=== PATIENT | female | born 1945 | race Caucasian/White ===

== ENCOUNTER 2018-07-27 12:52 | Observation (INO) ==
[2018-07-27] MEDS ORDERED: 0.9 % Sodium Chloride 1,000 ML IVC ONE (13:25)
[2018-07-27] MEDS ORDERED: Ondansetron 4 MG/2 ML VIAL IVP ONE (13:25)
[2018-07-27] MEDS ORDERED: 0.9 % Sodium Chloride 1,000 ML IVC SCH (13:30)
[2018-07-27] MEDS ORDERED: *HR* HYDROmorphone (PF) 1 MG/ML SYRINGE IVP ONE (13:30)
--- NOTE | 2018-07-27 13:30 | Emergency Department Note ---
Disposition Clinical Impression: Right upper quadrant abdominal pain, Hyponatremia Intractable vomiting Qualifiers: Vomiting type: unspecified Nausea presence: with nausea Qualified Code(s): R11.2 - Nausea with vomiting, unspecified Disposition: Admitted As Inpatient Condition: Fair Referrals: Jasbir Delcid MD [Primary Care Provider] - Forms: ED Satisfaction Letter Abdominal Pain HPI - General Chief Complaint: ED Nausea/Vomiting/Diarrhea Stated Complaint: Vomiting for 3 days/ Dr. yesterday Time Seen by Provider: 07/27/18 13:24 Source: patient, family Mode of arrival: private vehicle Limitations: no limitations Nursing Notes Reviewed: Yes Vital Signs Reviewed: Yes - History of Present Illness HPI Narrative: Patient arrives with history of increased right upper quadrant abdominal pain for 3-4 days. She is seen here by myself in transfer to [facility] with a common bile duct stone with epigastric pain on July 15. She is been relatively well post-ERCP, sphincterotomy and stone removal. She is now having persistent nausea and vomiting and severe pain in the right upper quadrant. Emesis has been without blood. She has not been eating eat or drink much for the 3-4 days and she states she has had decreased bowel movement for 2 days. She has not been having bloody or black stool. She denies chest pain, shortness of breath or palpitations. She denies fevers, chills or urinary troubles. She does have pain with motion or palpation on the abdomen. She saw her family doctor yesterday and was advised to go to liquid diet. With persistent and increasing pain she is come here today for reevaluation. Pt Subjective Complaint: abdominal pain Onset (ago): day(s) Consistency: Worsening Location: RUQ Pain Severity: severe Quality: cannot describe Radiation: none Migration to: no migration Improves with: nothing Worsens with: movement, other (Palpation) Context: history of similar episodes Associated symptoms: Reports: nausea, vomiting, anorexia. Denies: diarrhea, fever, chills, constipation, dysuria, hematemesis, hematochezia, melena, hematuria, syncope - Related Data Home Medications Medication Instructions Recorded Confirmed Albuterol Sulfate [Ventolin Hfa] 1 - 2 puff IH Q4H PRN 07/15/18 07/27/18 Alendronate Sodium 70 mg PO QWEEK 07/15/18 07/27/18 Furosemide [Lasix] 20 mg PO DAILY 07/15/18 07/27/18 Linagliptin [Tradjenta] 5 mg PO DAILY 07/15/18 07/27/18 Metformin HCl 500 mg PO BIDWM 07/15/18 07/27/18 Nystatin/Triamcinolone CRM 1 appl TP BID 07/15/18 07/27/18 [Mycolog] Omeprazole [PriLOSEC] 40 mg PO QAM 07/15/18 07/27/18 Simvastatin [Zocor] 20 mg PO HS 07/15/18 07/27/18 Amlodipine Besylate 5 mg PO HS 07/16/18 07/27/18 Aspirin Enteric Coated [Aspirin EC] 81 mg PO DAILY 07/16/18 07/27/18 Ferrous Sulfate 325 mg PO DAILY 07/16/18 07/27/18 Lactulose 20 gm PO BID 07/16/18 07/27/18 Polyethylene Glycol 3350 [MiraLax 17 gm PO DAILY PRN 07/16/18 07/27/18 bowel prep] Previous Rx's Medication Instructions Recorded Sulfamethoxazole/Trimeth DS 1 each PO BID #20 tablet 07/21/18 [Bactrim Ds] Allergies Allergy/AdvReac Type Severity Reaction Status Date / Time No Known Allergies Allergy Verified 07/15/18 17:39 All systems ED: reviewed and negative except as stated. Abdominal Pain PMH - Past Medical History Medical history: Reports: diabetes, hypertension, other Female Surgical History: Reports: cholecystectomy, orthopedic, other (Rotator cu ff repair), other (Common bile duct stone with sphincterotomy) Psychiatric history: Reports: no psych history - Social History Smoking status: Never smoker Alcohol use: Reports: none Drug use: Reports: none Physical Exam - General Limitations: language barrier General appearance: alert, anxious, in distress - Head Head exam: atraumatic, normocephalic, normal inspection - Eye Eye exam: Present: normal appearance, PERRL, EOMI - ENT ENT exam: normal exam, mucous membranes dry - Neck Neck exam: Present: normal inspection, full ROM, trachea midline - Chest Chest inspection: Present: normal inspection, symmetric chest wall rise - Respiratory Respiratory exam: Present: normal lung sounds bilaterally. Absent: respiratory distress, wheezes, prolonged expiratory phase - Cardiovascular Cardiovascular exam: Present: regular rate, normal rhythm, normal heart sounds. Absent: tachycardia - Abdominal Exam Abdominal exam: Present: guarding, normal bowel sounds, Castillo's sign. Absent: distention, rebound, rigidity Abdominal tenderness: Present: RUQ, moderate, severe - Extremities Exam Extremities exam: Present: normal inspection, full ROM, normal capillary refill. Absent: tenderness, pedal edema - Expanded Lower Extremity Exam Neurovascular/Tendon exam: Present: normal capillary refill Gait: not tested/not observed - Neurological Exam Neurological exam: Present: alert, oriented X3 - Psychiatric Psychiatric exam: Present: agitated, anxious - Skin Skin exam: Present: warm, dry, intact, normal color. Absent: diaphoresis, pallor Course Course Narrative: 1427: With return of all testing, care is discussed with the patient and family. She is continued with nausea and some pain but no further vomiting. The patient and family do not feel comfortable trying antiemetics and home observat ion at this time. A call has been placed to Dr. Chew to discuss possible inpatient observation and hydration. 1430: Care has been discussed with Dr. Chew. He is agreeable with inpatient observation of this patient and verbal orders have been obtained. Vital Signs Temperature 97.5 F L 07/27/18 12:54 Pulse Rate 87 07/27/18 12:54 Respiratory Rate 18 07/27/18 12:54 Blood Pressure 116/71 07/27/18 12:54 O2 Sat by Pulse Oximetry 98 07/27/18 12:54 Temperature 97.5 F L 07/27/18 12:54 Pulse Rate 87 07/27/18 12:54 Respiratory Rate 18 07/27/18 12:54 Blood Pressure 116/71 07/27/18 12:54 O2 Sat by Pulse Oximetry 98 07/27/18 12:54 Oxygen Delivery Oxygen Delivery Room Air Abdominal Pain - Differential Diagnosis Differential Diagnosis: Likely: abdominal pain non-specific. Unlikely: acute appendicitis, constipation, colonic obstruction, diverticulitis, pancreatitis, small bowel obstruction - Medical Records Medical records reviewed: Yes I reviewed the patient's medical records. - Lab Data Lab results reviewed: Yes I reviewed the patient's lab results. Result diagrams: 07/27/18 13:44 07/27/18 13:44 Lab Results 07/27/18 07/27/18 Range/Units 13:44 13:44 WBC 7.8 (4.3-11.1) K/mcL RBC 4.66 (3.82-4.97) M/mcL Hgb 13.5 D (11.5-15.4) g/dL Hct 41.0 (35.3-44.9) % MCV 88.0 (83.0-100.0) fL MCH 29.0 (28.0-33.3) pg MCHC 32.9 (31.6-35.5) g/dL RDW 12.6 (11.5-14.5) % Plt Count 318 (140-400) K/mcL MPV 10.8 (9.4-12.4) fL Immature Gran % 0.5 (0-4) % Seg Neutrophils % 62.4 % Lymphocytes % 27.3 % Monocytes % 8.6 % Eosinophils % 0.8 % Basophils % 0.4 % Neutrophils # 4.9 (1.6-8.9) K/mcL Lymphocytes # 2.1 (0.6-4.6) K/mcL Monocytes # 0.7 (0.0-1.3) K/mcL Eosinophils # 0.1 (0.0-0.6) K/mcL Basophils # 0.0 (0.0-0.2) K/mcL Sodium 129 L (136-145) mEq/L Potassium 4.8 (3.5-5.1) mEq/L Chloride 94 L (98-107) mEq/L Carbon Dioxide 21 L (23-29) mEq/L BUN 12 (8-23) mg/dL Creatinine 1.25 H (0.60-1.20) mg/dL Est GFR ( Amer) 51 L (> 60) Est GFR (Non-Af Amer) 42 L (> 60) BUN/Creatinine Ratio 10 (6-26) Glucose 104 (70-105) mg/dL Calculated Osmolality 268 L (280-300) Calcium 11.0 H (8.6-10.3) mg/dL Total Bilirubin 0.9 (0.3-1.0) mg/dL Direct Bilirubin 0.2 (0.0-0.2) mg/dL Indirect Bilirubin 0.7 (0.0-1.2) mg/dL AST 46 H (13-39) Units/L ALT 43 (7-52) Units/L Alkaline Phosphatase 87 (34-104) Units/L Serum Total Protein 8.1 (6.4-8.9) g/dL Albumin 4.1 (3.5-5.7) g/dL Globulin 4.0 H (2.4-3.5) g/dL Albumin/Globulin Ratio 1.0 L (1.1-2.2) Amylase 76 (29-103) Units/L Lipase 50 (11-82) Units/L - Radiology Data Radiology results reviewed: Yes I reviewed the patient's radiology results. CT is performed of the abdomen and pelvis without IV or oral contrast. This shows the basal lungs to be free of infiltrate. The liver, spleen and pancreas appear normal area the gallbladder is surgically absent. The previous distal common bile duct stone is absent. Kidneys are without stone or obstruction. The bowels without inflammatory change, obstruction or perforation. Abdominal wall appears normal. I do not see any structural cause to account for this patient's pain and vomiting. This is on my interpretation. Impressions Abdomen/Pelvis CT 07/27/18 13:30 IMPRESSION: 1. No acute abnormality. D/ / Jovany Allan MD / Jovany Allan MD Interpreting Provider: Jovany Allan MD
[2018-07-27 13:50] LABS: Basophils % 0.4 %; Eosinophils # 0.1 K/mcL (0.0-0.6); Eosinophils % 0.8 %; Hemoglobin 13.5 g/dL (11.5-15.4); Immature Granulocytes % 0.5 % (0-4); Lymphocytes # 2.1 K/mcL (0.6-4.6); Lymphocytes % 27.3 %; Mean Corpuscular HGB Conc 32.9 g/dL (31.6-35.5); Mean Platelet Volume 10.8 fL (9.4-12.4); Monocytes # 0.7 K/mcL (0.0-1.3); Monocytes % 8.6 %; Neutrophils # 4.9 K/mcL (1.6-8.9); Platelet Count 318 K/mcL (140-400); Red Blood Count 4.66 M/mcL (3.82-4.97); Red Cell Distribution Width 12.6 % (11.5-14.5); Segmented Neutrophils % 62.4 %
[2018-07-27 14:10] LABS: Albumin 4.1 g/dL (3.5-5.7); Bilirubin,Direct 0.2 mg/dL (0.0-0.2); Bilirubin,Indirect 0.7 mg/dL (0.0-1.2); Bilirubin,Total 0.9 mg/dL (0.3-1.0); Potassium 4.8 mEq/L (3.5-5.1); Total Protein 8.1 g/dL (6.4-8.9)
[2018-07-27] MEDS ORDERED: Albuterol 2.5 MG/3 ML NEBULIZER IH PRN ×2 (14:38→15:02)
[2018-07-27] MEDS ORDERED: Naloxone 0.4 MG/ML INJ IVP PRN (15:02)
[2018-07-27] MEDS ORDERED: D5% in Water 1,000 ML IVC PRN (15:02)
[2018-07-27] MEDS ORDERED: MOM Conc 10 ML UD.LIQ PO PRN (15:02)
[2018-07-27] MEDS ORDERED: *HR* Dextrose 50 % in Water (Vial) 50 ML VIAL IVP PRN (15:02)
[2018-07-27] MEDS ORDERED: Ondansetron 4 MG/2 ML VIAL IVP PRN (15:02)
[2018-07-27] MEDS ORDERED: Mag Hydrox/Al Hydrox/Simeth 30 ML UDC PO PRN (15:02)
[2018-07-27] MEDS ORDERED: Dextrose Gel 15 GM/37.5 ML TUBE PO PRN ×2 (15:02)
[2018-07-27] MEDS: 0.9 % Sodium Chloride 1,000 ML IVC SCH (16:30)
[2018-07-27] MEDS: Insulin LISPRO 300 UNITS/3 ML VIAL SQ SCH (16:34)
[2018-07-27] MEDS: Sulfamethoxazole/Trimeth DS 1 EACH TABLET PO SCH (20:52)
[2018-07-27] MEDS: amLODIPine 5 MG TABLET PO SCH (20:53)
[2018-07-28] MEDS: 0.9 % Sodium Chloride 1,000 ML IVC SCH ×3 (00:19→14:21)
[2018-07-28] MEDS: Insulin LISPRO 300 UNITS/3 ML VIAL SQ SCH ×3 (07:35→16:30)
[2018-07-28] MEDS: TRADJENTA 5MG PO SCH (08:14)
[2018-07-28] MEDS: Aspirin Enteric Coated 81 MG Tablet PO SCH (08:20)
[2018-07-28] MEDS: Sulfamethoxazole/Trimeth DS 1 EACH TABLET PO SCH ×2 (08:20→20:14)
--- NOTE | 2018-07-28 10:21 | Internal Med History&Physical ---
Date of Encounter: 07/28/18 Time of Encounter: 09:45 Assessment and Plan (1) Right upper quadrant abdominal pain Current visit: Yes Status: Acute Abdominal CT showed no worrisome pathology. She has remained afebrile since admission. Repeat labs will be done this morning. I offered transfer to [facility] but she declined at this time. (2) Azotemia Current visit: Yes Status: Acute Creatinine has increased from 0.69 on July 2018 to 1.25. Possible etiologies include dehydration and use of Bactrim. Labs to be monitored. IV fluids will be continued. (3) DM type 2 (diabetes mellitus, type 2) Current visit: Yes Status: Chronic Check hemoglobin A1c. Accu-Cheks with SSI will be done. Qualifiers: Diabetes mellitus senior care insulin use: without terminal block assembler use Diabetes jud litus complication status: without complication Qualified Code(s): E11.9 - Type 2 diabetes mellitus without complications (4) Hypercalcemia Current visit: Yes Status: Acute Recheck labs today Internal Medicine - H&P: HPI Chief complaint: RUQ pain Admitted From: Emergency Dept Plans for Post Hospital Care: Home History of present illness: Ms. Delcid is a 73 year old female who came to emergency room complaining of 3 day history of right upper quadrant discomfort. She was hospitalized at [facility] July 15- in transfer from [facility] after presenting with right upper quadrant pain. She was found to have 5 mm CBD stone. She had ERCP. She was diagnosed with cholangitis and treated with IV Zosyn. Blood culture showed Escherichia coli ESBL. She was discharged on Bactrim DS until 07/31/2018. She reports 3 days ago she developed nausea vomiting, sensation of right upper quadrant swelling, and hiccups. She came to emergency room was evaluated and found to have slight elevation of AST and elevated creatinine. Abdominal CT was unremarkable. She was admitted to [facility] floor for ongoing care needs. She states her abdominal pain is still present but has lessened slightly since coming to emergency room yesterday. She does not feel significantly nauseated at this time. She reports she had cholecystectomy approximately 2013 at [place]. She denies other disorders of her liver or exocrine pancreas. She reports a colonoscopy 2016 was unremarkable. She had recent EGD during ERCP procedure at [facility]. Past Med Surg Social Fam HX - Past Medical History Medical history: diabetes, hyperlipidemia, hypertension, osteoporosis, other Psychiatric history: no psych history - Past Surgical History Surgical History: cholecystectomy Additional surgical history: rotator cuff. Gall stones. cataracts removed - Social History Smoking Status: Never smoker Smokeless Tobacco Status: No Alcohol use: none Drug use: none Internal Medicine - H&P: Meds Albuterol Sulfate [Ventolin Hfa] 1 - 2 puff IH Q4H PRN 07/15/18 [History] Alendronate Sodium 70 mg PO QWEEK 07/15/18 [History] Furosemide [Lasix] 20 mg PO DAILY 07/15/18 [History] Linagliptin [Tradjenta] 5 mg PO DAILY 07/15/18 [History] Metformin HCl 500 mg PO BIDWM 07/15/18 [History] Nystatin/Triamcinolone CRM [Mycolog] 1 appl TP BID 07/15/18 [History] Omeprazole [PriLOSEC] 40 mg PO QAM 07/15/18 [History] Simvastatin [Zocor] 20 mg PO HS 07/15/18 [History] Amlodipine Besylate 5 mg PO HS 07/16/18 [History] Aspirin Enteric Coated [Aspirin EC] 81 mg PO DAILY 07/16/18 [History] Ferrous Sulfate 325 mg PO DAILY 07/16/18 [History] Lactulose 20 gm PO BID 07/16/18 [History] Polyethylene Glycol 3350 [MiraLax bowel prep] 17 gm PO DAILY PRN 07/16/18 [History] Sulfamethoxazole/Trimeth DS [Bactrim Ds] 1 each PO BID #20 tablet 07/21/18 [Rx] Allergy/AdvReac Type Severity Reaction Status Date / Time No Known Allergies Allergy Verified 07/15/18 17:39 All Systems PM: A 10-system review of systems was performed and is negative for pertinent findings except as documented above in the HPI. Review of systems: Gen.: She states her weight is decreased approximately 20 pounds in the past 2 years unintentionally Cardiovascular: She has history of hypertension. She reports [place] approximately 2013 and was transferred from [facility] to [facility] [place]. She does not think a heart catheter was done. She denies known heart failure DVT or pulmonary embolus Respiratory: She is a lifelong nonsmoker. She has occasional cough and has a diagnosis of asthma. She uses albuterol MDI as needed. GI: As per history of present illness : She denies hematuria dysuria or kidney stones Neurologic: She denies large distribution strokes or seizures. Endocrine: She was diagnosed with DM 2 approximately 2014. She has hyperlipidemia but denies thyroid disease. Hematology/oncology: She denies blood disorders cancers or anemia Psychiatric: She denies anxiety depression or other mental health issues [place] skeletal: She has DJD. She had right rotator cuff surgery repair. She has diagnoses of gout. - Constitutional Vitals: Temp Pulse Resp BP Pulse Ox 98.4 F 68 14 98/55 96 07/28/18 06:26 07/28/18 06:26 07/28/18 06:26 07/28/18 06:26 07/28/18 06:26 Exam: Gen.: She is resting comfortably in bed and appears in no acute distress HEENT: Head is atraumatic and normocephalic. Eyes: EOMI. There is no scleral icterus. Mouth: Mucosa is moist. Neck: Supple and nontender. There is no thyromegaly or adenopathy noted. Heart: Regular without murmurs gallops or ectopics Lungs: No wheezes or crackles are heard. Abdomen: She has tenderness to palpation in the right upper anterolateral abdominal area. The abdomen is nontender otherwise. Bowel sounds are present. No masses or guarding are noted. Extremities: There is no cyanosis edema or clubbing noted. Dorsalis pedis and posterior tibial pulses are 1-2 over 2 bilaterally. Neurologic: Mental status: She is able to answer questions occasionally requiring language translation from a family friend in the room. Cranial nerves: Smile is symmetric. Forehead wrinkles bilaterally. Tongue protrudes midline. EOMI. Motor: She moves her arms well randomly. No further neurologic testing is attempted. Skin: Warm and dry Internal Med - H&P Results - Labs CBC & Chem 7: 07/27/18 13:44 07/27/18 13:44 Labs: Short CBC 07/27/18 Range/Units 13:44 WBC 7.8 (4.3-11.1) K/mcL Hgb 13.5 D (11.5-15.4) g/dL Hct 41.0 (35.3-44.9) % Plt Count 318 (140-400) K/mcL Neutrophils # 4.9 (1.6-8.9) K/mcL BMP 07/27/18 13:44 Sodium 129 L Potassium 4.8 Chloride 94 L Carbon Dioxide 21 L BUN 12 Creatinine 1.25 H Glucose 104 Calcium 11.0 H Liver Function 07/27/18 Range/Units 13:44 Total Bilirubin 0.9 (0.3-1.0) mg/dL Direct Bilirubin 0.2 (0.0-0.2) mg/dL AST 46 H (13-39) Units/L ALT 43 (7-52) Units/L Alkaline Phosphatase 87 (34-104) Units/L Albumin 4.1 (3.5-5.7) g/dL - Impressions ITS Impressions Abdomen/Pelvis CT 07/27/18 13:30 IMPRESSION: 1. No acute abnormality. D/ / Jovany Allan MD / Jovany Allan MD Interpreting Provider: Jovany Allan MD
[2018-07-28 11:37] LABS: Basophils % 0.7 %; Eosinophils # 0.1 K/mcL (0.0-0.6); Eosinophils % 1.5 %; Hematocrit 34.8 % (35.3-44.9); Hemoglobin 11.1 g/dL (11.5-15.4); Immature Granulocytes % 0.2 % (0-4); Lymphocytes % 37.4 %; Mean Corpuscular HGB Conc 31.9 g/dL (31.6-35.5); Mean Corpuscular Hemoglobin 29.2 pg (28.0-33.3); Mean Corpuscular Volume 91.6 fL (83.0-100.0); Mean Platelet Volume 10.8 fL (9.4-12.4); Monocytes # 0.5 K/mcL (0.0-1.3); Monocytes % 9.9 %; Neutrophils # 2.7 K/mcL (1.6-8.9); Platelet Count 281 K/mcL (140-400); Red Cell Distribution Width 12.8 % (11.5-14.5); Segmented Neutrophils % 50.3 %
[2018-07-28 11:43] LABS: Alanine Aminotransferase 31 Units/L (7-52); Albumin 3.5 g/dL (3.5-5.7); Albumin/Globulin Ratio 1.1 (1.1-2.2); Alkaline Phosphatase 67 Units/L (34-104); Aspartate Amino Transferase 31 Units/L (13-39); BUN/Creatinine Ratio 8 (6-26); Bilirubin,Total 0.7 mg/dL (0.3-1.0); Blood Urea Nitrogen 8 mg/dL (8-23); Calcium 8.9 mg/dL (8.6-10.3); Carbon Dioxide 24 mEq/L (23-29); Chloride 105 mEq/L (98-107); Globulin 3.1 g/dL (2.4-3.5); Glucose 153 mg/dL (70-105); Lipase 48 Units/L (11-82); Osmolality,Calculated 283 (280-300); Potassium 4.2 mEq/L (3.5-5.1); Sodium 136 mEq/L (136-145); Total Protein 6.6 g/dL (6.4-8.9); eGFR For Non-African Americans 54 (> 60)
[2018-07-28 11:58] LABS: Thyroid Stimulating Hormone 0.906 mcIU/mL (0.340-5.600)
[2018-07-28 18:17] LABS: Estimated Average Glucose 151 mg/dl; Hemoglobin A1C 6.9 %
[2018-07-28 19:17] LABS: Gamma Glutamyl Transpeptidase 141 Units/L (1-24)
[2018-07-28] MEDS: amLODIPine 5 MG TABLET PO SCH (20:14)
[2018-07-29 06:21] LABS: Basophils % 0.7 %; Eosinophils # 0.1 K/mcL (0.0-0.6); Eosinophils % 2.5 %; Hematocrit 33.1 % (35.3-44.9); Hemoglobin 10.5 g/dL (11.5-15.4); Immature Granulocytes % 0.5 % (0-4); Lymphocytes # 2.5 K/mcL (0.6-4.6); Lymphocytes % 44.1 %; Mean Corpuscular HGB Conc 31.7 g/dL (31.6-35.5); Mean Corpuscular Hemoglobin 28.8 pg (28.0-33.3); Mean Corpuscular Volume 90.7 fL (83.0-100.0); Mean Platelet Volume 11.5 fL (9.4-12.4); Monocytes # 0.5 K/mcL (0.0-1.3); Monocytes % 8.4 %; Neutrophils # 2.5 K/mcL (1.6-8.9); Platelet Count 258 K/mcL (140-400); Red Blood Count 3.65 M/mcL (3.82-4.97); Red Cell Distribution Width 12.9 % (11.5-14.5); Segmented Neutrophils % 43.8 %
[2018-07-29 06:33] VITALS: BP 109/57
[2018-07-29 06:41] LABS: BUN/Creatinine Ratio 6 (6-26); Blood Urea Nitrogen 5 mg/dL (8-23); Calcium 8.7 mg/dL (8.6-10.3); Carbon Dioxide 25 mEq/L (23-29); Chloride 107 mEq/L (98-107); Glucose 95 mg/dL (70-105); Osmolality,Calculated 285 (280-300); Potassium 3.9 mEq/L (3.5-5.1); Sodium 139 mEq/L (136-145); eGFR For Non-African Americans > 60 (> 60)
[2018-07-29] MEDS: Insulin LISPRO 300 UNITS/3 ML VIAL SQ SCH (07:34)
[2018-07-29] MEDS: TRADJENTA 5MG PO SCH (07:44)
[2018-07-29] MEDS: Aspirin Enteric Coated 81 MG Tablet PO SCH (07:47)
[2018-07-29] MEDS: 0.9 % Sodium Chloride 1,000 ML IVC SCH (07:47)
[2018-07-29] MEDS: Sulfamethoxazole/Trimeth DS 1 EACH TABLET PO SCH (07:47)
--- NOTE | 2018-07-29 09:18 | Discharge Summary ---
Orders not resulted at time of discharge: Pending orders 07/29/18 05:08 Basic Metabolic Panel AM 0400 Ferritin AM 0400 Folate AM 0400 Iron Profile AM 0400 Vitamin B12 AM 0400 Date of Encounter: 07/29/18 Time of Encounter: 09:10 - Discharge Diagnosis (1) Right upper quadrant abdominal pain Priority: Primary Status: Acute (2) Azotemia Priority: Secondary Status: Resolved (3) DM type 2 (diabetes mellitus, type 2) Priority: Secondary Status: Chronic Qualifiers: Diabetes mellitus medical radiation tech insulin use: without medical radiation tech use Diabetes mellitus complication status: without complication Qualified Code(s): E11.9 - Type 2 diabetes mellitus without complications (4) Hypercalcemia Priority: Secondary Status: Resolved Hospital course: Ms. Delcid is a 73 year old female who came to emergency room complaining of 3 day history of right upper quadrant discomfort. She was hospitalized at [facility] July 15- in transfer from [facility] after presenting with right upper quadrant pain. She was found to have 5 mm CBD stone. She had ERCP. She was diagnosed with cholangitis and treated with IV Zosyn. Blood culture showed Escherichia coli ESBL. She was discharged on Bactrim DS until 07/31/2018. She reports 3 days ago she developed nausea vomiting, sensation of right upper quadrant swelling, and hiccups. She came to emergency room was evaluated and found to have slight elevation of AST and elevated creatinine. Abdominal CT was unremarkable. She was admitted to [facility] floor for ongoing care needs. Initial orders were written by the emergency room physician. I saw her on July 28 and performed a history and physical. She was started on IV fluids emergency room. By the time I saw her she stated her abdominal pain had lessened. She had no further vomiting and was able to tolerate oral intake satisfactorily. Follow-up labs on July 29 showed WBC normal at 5.7. Hemoglobin had decreased to 10.5. Her PCP can follow up on the anemia which is likely due in part to IV fluid administration. The etiology of her abdominal pain was not determined. Creatinine normalized to 0.86 and calcium normalized to 8.7 by day of discharge. On July 29 she felt stable for discharge home. She will follow with her PCP Dr. Delcid within 1 week. - Time Spent with Patient Total time spent providing and/or coordinating discharge services: - Discharge Medications Prescriptions: Continued Simvastatin [Zocor] 20 mg PO HS Omeprazole [PriLOSEC] 40 mg PO QAM Nystatin/Triamcinolone CRM [Mycolog] 1 appl TP BID Metformin HCl 500 mg PO BIDWM Linagliptin [Tradjenta] 5 mg PO DAILY Furosemide [Lasix] 20 mg PO DAILY Alendronate Sodium 70 mg PO QWEEK Albuterol Sulfate [Ventolin Hfa] 1 - 2 puff IH Q4H PRN PRN Reason: Shortness Of Breath Amlodipine Besylate 5 mg PO HS Aspirin Enteric Coated [Aspirin EC] 81 mg PO DAILY Ferrous Sulfate 325 mg PO DAILY Lactulose 20 gm PO BID Polyethylene Glycol 3350 [MiraLax bowel prep] 17 gm PO DAILY PRN PRN Reason: Constipation Sulfamethoxazole/Trimeth DS [Bactrim Ds] 1 each PO BID #20 tablet Home Medications: Albuterol Sulfate [Ventolin Hfa] 1 - 2 puff IH Q4H PRN 07/15/18 [History] Alendronate Sodium 70 mg PO QWEEK 07/15/18 [History] Furosemide [Lasix] 20 mg PO DAILY 07/15/18 [History] Linagliptin [Tradjenta] 5 mg PO DAILY 07/15/18 [History] Metformin HCl 500 mg PO BIDWM 07/15/18 [History] Nystatin/Triamcinolone CRM [Mycolog] 1 appl TP BID 07/15/18 [History] Omeprazole [PriLOSEC] 40 mg PO QAM 07/15/18 [History] Simvastatin [Zocor] 20 mg PO HS 07/15/18 [History] Amlodipine Besylate 5 mg PO HS 07/16/18 [History] Aspirin Enteric Coated [Aspirin EC] 81 mg PO DAILY 07/16/18 [History] Ferrous Sulfate 325 mg PO DAILY 07/16/18 [History] Lactulose 20 gm PO BID 07/16/18 [History] Polyethylene Glycol 3350 [MiraLax bowel prep] 17 gm PO DAILY PRN 07/16/18 [History] Sulfamethoxazole/Trimeth DS [Bactrim Ds] 1 each PO BID #20 tablet 07/21/18 [Rx] Allergies/Adverse Reactions: Allergy/AdvReac Type Severity Reaction Status Date / Time No Known Allergies Allergy Verified 07/15/18 17:39 Date of admission: 07/27/18 14:48 Primary care physician: Jasbir Delcid MD - Constitutional Vitals: Temp Pulse Resp BP Pulse Ox 98.2 F 60 17 109/57 95 07/29/18 06:26 07/29/18 06:26 07/29/18 06:26 07/29/18 06:26 07/29/18 06:26 - Patient Status Disposition: Home, Self-Care Condition: Fair - Discharge Instructions Follow Up With: Jasbir Delcid MD [Primary Care Provider] - 1 week - Diet and Activity Activity: resume usual activities as tolerated Diet: advance to your usual diet
[2018-07-29 10:02] LABS: % Iron Saturation 24 % (15-50); Iron 70 mcg/dL (50-170); Transferrin 208 mg/dL (203-362)
[2018-07-29 10:20] LABS: Ferritin 129 ng/mL (10-120)
[2018-07-29 10:29] LABS: Folate > 22.3 ng/mL (3.0-16.0); Vitamin B12 308 pg/mL (250-1100)
== END 2018-07-29 10:25 | disposition home or self-care (01) ==
LOC: INPPIK 12:52 → EMEROOPIK 12:52 → INPPIK 15:34
PROVIDERS: ADMIT Internal Medicine; ATTEND Internal Medicine